=== PATIENT | female | born 1980 | race Two or more races ===

== ENCOUNTER 2021-10-31 04:55 | Emergency (ER) | payer OTHER ==
[~2021-10-31] VITALS: Ht 160 cm; Wt 54.4 kg
[~2021-10-31 04:55] MED LIST: OSEL75CA PO; TUSSI-PRES LIQ120 ML PO
== END 2021-10-31 10:30 | disposition home or self-care (01) ==
LOC: ER 04:55
DX: N93.9 Abnormal uterine and vaginal bleeding, unspecified (principal); D25.0 Submucous leiomyoma of uterus